=== PATIENT | female | born 1970 | race Caucasian/White ===

== ENCOUNTER 2022-07-23 11:07 | Outpatient (CLI) | payer OTHER, SELFPAY ==
--- NOTE | 2022-07-23 11:15 | CRLHL7_ITS ---
For Patients: As a result of the Century Cures Act, medical imaging exams and procedure reports are released immediately into your electronic medical record. You may view this report before your referring provider. If you have questions, please contact your health care provider. Technique: Double-contrast upper GI performed after the uneventful administration of effervescent crystals and thick barium followed by thin barium. Fluoroscopy time 1 minutes 44 seconds. Indication: Gastroesophageal DISEASE Comparison: None. Findings: Swallowing mechanism: Normal. Esophageal motility: Decreased motility with delayed clearance of contrast from the esophagus into the stomach. Gastroesophageal reflux: Severe reflux to the proximal esophagus. Hernia: None. Esophagus, stomach and duodenal bulb mucosa: Mucosal irregularity noted involving the distal esophagus. Suspicion of additional mild mucosal irregularity involving the mid esophagus. No stricture or ulcer. Normal gastric mucosa. Duodenal bulb appears normal. Impression: Severe spontaneous reflux to the proximal esophagus with distal reflux esophagitis. Suspicion of additional esophagitis in the midesophagus. EGD recommended for further evaluation. Delayed esophageal motility. No hernia. Dictated by Demetri Florez MD @ 07/23/2022 12:47:56 PM (Electronically Signed)
== END 2022-07-23 11:08 | disposition home or self-care (01) ==
LOC: RAD 11:09
PROVIDERS: Visit Provider Internal Medicine Gastroenterology
DX: K21.9 Gastro-esophageal reflux disease without esophagitis (principal); R10.13 Epigastric pain; R12 Heartburn
CPT/HCPCS: 74246